=== PATIENT | female | born 1965 | race Caucasian/White ===

== ENCOUNTER 2018-09-29 08:40 | Emergency (ER) | payer SELFPAY ==
--- NOTE | 2018-09-29 09:50 | RAD ---
FXR Foot Rt 3 View STANDARD History: [Injury. Pain.] Comparison: None Findings: No acute fracture or malalignment. Chronic body stimulation of the distal interphalangeal j oint of the second toe. Lisfranc interval appears to be maintained. Impression: No acute fracture or malalignment.
== END 2018-09-29 10:18 | disposition home or self-care (01) ==
LOC: NAV ERS 08:40
DX: M79.671 Pain in right foot (principal); F17.210 Nicotine dependence, cigarettes, uncomplicated

== ENCOUNTER 2021-07-06 12:00 | Emergency (ER) | payer SELFPAY ==
[2021-07-07 08:33] LABS: SARS-CoV-2 PCR by NAA DETECTED (NotDetected)
== END 2021-07-06 13:07 | disposition home or self-care (01) ==
LOC: NAV ERS 12:00
DX: U07.1 COVID-19 (principal); F17.210 Nicotine dependence, cigarettes, uncomplicated; J45.909 Unspecified asthma, uncomplicated
CPT/HCPCS: 99283; U0003; U0005

== ENCOUNTER 2022-03-12 08:53 | Emergency (ER) | payer OTHER ==
[2022-03-12] MEDS ORDERED: Iopamidol 370 76% 100 ML VIAL ONE (09:00)
[2022-03-12] MEDS ORDERED: Ketorolac Tromethamine 30 MG/ML VIAL ONE (09:36)
[2022-03-12] MEDS ORDERED: Metoclopramide HCl 10 MG/2 ML VIAL ONE ×2 (09:36→11:45)
[2022-03-12] MEDS ORDERED: diphenhydrAMINE 50 MG/ML VIAL ONE (09:36)
[2022-03-12] MEDS ORDERED: Sodium Chloride 0.9% 1,000 ML ONE (09:36)
[2022-03-12 09:57] LABS: #Basophils 0.1 thou/uL (0.0-0.2); #Eosinphils 0.3 thou/uL (0.0-0.7); #Lymphocytes 1.5 thou/uL (1.20-3.40); #Monocytes 0.5 thou/uL (0.11-0.59); #Neutrophils 6.1 thou/uL (1.40-6.50); %Eosinophils 3.7 % (0.0-10.0); %Lymphocytes 17.6 % (21.0-51.0); %Monocytes 6.3 % (0.0-10.0); %Neutrophils 71.4 % (42.0-75.0); Hemoglobin 11.4 g/dL (12.0-16.0); Mean Corpuscular HGB CONC 32.2 g/dL (32.0-36.0); Mean Corpuscular Hemoglobin 32.4 pg (27.0-31.0); Mean Platelet Volume 7.3 fL (7.4-10.4); Platelet Count 406 thou/uL (130-400); RBC Distribution Width 12.2 % (11.5-14.5); Red Blood Cell (RBC) Count 3.53 mill/uL (4.20-5.40); White Blood Cell (WBC) Count 8.6 thou/uL (4.8-10.8)
[2022-03-12 10:06] LABS: INR-International Normal Ratio 0.9; Prothrombin Time 11.7 sec (12.0-14.7)
[2022-03-12 10:15] LABS: ALT (SGPT) 35 U/L (8-55); AST (SGOT) 23 U/L (5-34); Alkaline Phosphatase 75 U/L (40-110); Anion Gap 13 mmol/L (10-20); BUN (Urea Nitrogen) 18 mg/dL (9.8-20.1); Bilirubin, Total 0.5 mg/dL (0.2-1.2); Calc. Creatinine Clearance 0 mL/min (70-130); Calcium 9.4 mg/dL (7.8-10.44); Carbon Dioxide 23 mmol/L (22-29); Chloride 107 mmol/L (98-107); Estimated GFR 64; Globulin 2.7 g/dL (2.4-3.5); Glucose 93 mg/dL (70-105); Potassium 4.1 mmol/L (3.5-5.1); Protein, Total 6.7 g/dL (6.0-8.3); Sodium 139 mmol/L (136-145)
[2022-03-12 10:23] LABS: Bilirubin Negative (Negative); Blood, Urine Large (Negative); Clarity Cloudy (Clear); Glucose, Urine (Dipstick) Negative (Negative); Ketone, Urine Negative (Negative); Leukocyte Small (Negative); Nitrite Positive (Negative); Protein, Urine (Dipstick) 30 mg/dL (Neg-Trace); Urobilinogen 0.2 mg/dL (Less than 2)
[2022-03-12 10:35] LABS: Bacteria/HPF Rare-Few HPF (None Seen); RBC/HPF 21-50 HPF (0-3); Squamous Epithelial 0-3 HPF (0-3)
[2022-03-12] MEDS ORDERED: Magnesium 2 GM/50 ML BAG (IN WATER) ONE (11:45)
== END 2022-03-12 12:30 | disposition home or self-care (01) ==
LOC: NAV ERS 08:53
DX: N72 Inflammatory disease of cervix uteri (principal); N28.9 Disorder of kidney and ureter, unspecified; F17.210 Nicotine dependence, cigarettes, uncomplicated
CPT/HCPCS: 74177; 80053; 81003; 81015; 85025; 85610; 85730; 96365; 96366; 96375; J1200; J1885; J2765; J3475; J7050; Q9967

== ENCOUNTER 2022-09-17 10:48 | Outpatient (CLI) | payer OTHER | END 2022-09-17 10:49 | disposition home or self-care (01) | LOC: NAV CT 10:48 | PROVIDERS: ATTEND Urology | DX: N13.30 Unspecified hydronephrosis (principal); D63.0 Anemia in neoplastic disease; S37.012A Minor contusion of left kidney, initial encounter; Z93.6 Other artificial openings of urinary tract status | CPT/HCPCS: 74176 ==